=== PATIENT | female | born 1960 | race Caucasian/White ===

== ENCOUNTER → 2016-07-13 | Outpatient (CLI) | payer OTHER ==
--- NOTE | 2016-07-14 09:13 | ECHOF ---
Referral Reason:R06.00 Dyspnea MEASUREMENTS -------- HEIGHT: 152.4 cm WEIGHT: 80.7 kg BP: RVIDd: 2.6 cm (< 3.3) IVSd: 0.9 cm (0.6 - 1.1) LVIDd: 4.2 cm (3.9 - 5.3) LVPWd: 1.1 cm (0.6 - 1.1) IVSs: 1.3 cm LVIDs: 2.9 cm LVPWs: 1.1 cm LA Diam: 3.2 cm (2.7 - 3.8) LAESV Index (A-L): 20.57 ml/m Ao Diam: 2.6 cm (2.0 - 3.7) AV Cusp: 1.8 cm (1.5 - 2.6) LA Diam: 3.6 cm (2.7 - 3.8) MV EXCURSION: 18.221 mm (> 18.000) MV EF SLOPE: 106 mm/s (70 - 150) EPSS: 0.4 cm MV E Daljit: 0.55 m/s MV DecT: 271 ms MV A Daljit: 0.69 m/s MV E/A Ratio: 0.79 RAP: 5.00 mmHg RVSP: 34.50 mmHg FINDINGS -------- Sinus rhythm. This was a technically good study. LV size, wall thickness and systolic function are normal, with an EF greater than 55%. The right ventricle is normal in size. Normal LA size by volume 22+/-6 ml/m2. The right atrial size is normal. There is mild aortic valve sclerosis. There is no evidence of aortic regurgitation. Mild mitral annular calcification present. Mild mitral regurgitation is present. Mild tricuspid regurgitation present. There is no evidence of pulmonary hypertension. The right ventricular systolic pressure, as measured by Doppler, is 34.50mmHg. There is no pulmonic regurgitation present. The aortic root size is normal. There is no pericardial effusion. CONCLUSIONS -------- 1. LV size, wall thickness and systolic function are normal, with an EF greater than 55%. 2. Normal LA size by volume 22+/-6 ml/m2. 3. There is mild aortic valve sclerosis. 4. Mild mitral annular calcification present. 5. Mild mitral regurgitation is present. 6. Mild tricuspid regurgitation present. 7. There is no evidence of pulmonary hypertension. 8. The right ventricular systolic pressure, as measured by Doppler, is 34.50mmHg. 9. There is no pericardial effusion. MARKETING REPRESENTATIVE: Naomi Colón RDCS
== END | disposition home or self-care (01) ==
LOC: RADECHMAIN 13:05
PROVIDERS: ATTEND Family Medicine
DX: I08.3 Combined rheumatic disorders of mitral, aortic and tricuspid valves (principal)
CPT/HCPCS: 93306

== ENCOUNTER → 2017-02-06 | Outpatient (CLI) | payer OTHER ==
--- NOTE | 2017-02-06 17:04 | US ---
EXAMINATION TYPE: US venous doppler duplex UE LT DATE OF EXAM: 02/06/2017 COMPARISON: NONE CLINICAL HISTORY: D68.59 OTHER PRIMARYTHROMBOPHILIA. Redness and edema left forearm, recent IV left f orearm SIDE PERFORMED: left Left Arm: No evidence of DVT. Superficial thrombus noted within left Cephalic vein at antecubital fos sa extending into left lower arm IMPRESSION: No evidence of deep venous thrombosis. There is limited superficial thrombus in the cephalic vein
== END | disposition home or self-care (01) ==
LOC: RADUSWWP 15:57
PROVIDERS: ATTEND Family Medicine
DX: I82.612 Acute embolism and thrombosis of superficial veins of left upper extremity (principal); D68.59 Other primary thrombophilia

== ENCOUNTER → 2018-04-04 | Outpatient (CLI) | payer OTHER ==
--- NOTE | 2018-04-04 08:08 | US ---
EXAMINATION TYPE: US abdomen complete DATE OF EXAM: 04/04/2018 COMPARISON: NONE CLINICAL HISTORY: R14.0 Abdominal Bloating. EXAM MEASUREMENTS: Liver Length: 16.0 cm Gallbladder Wall: 0.2 cm CBD: 0.2 cm Spleen: 8.9 cm Right Kidney: 10.9 x 4.7 x 5.0 cm Left Kidney: 11.2 x 4.4 x 4.4 cm Pancreas: Tail obscured by overlying bowel gas Liver: Heterogeneous Gallbladder: wnl Evidence for sonographic Fregoso's sign: No CBD: wnl Spleen: wnl Right Kidney: No hydronephrosis or masses seen Left Kidney: No hydronephrosis or masses seen Upper IVC: wnl Abd Aorta: Obscured by bowel gas, visualized portions wnl The liver is heterogeneous. The intrahepatic portion of the IVC and proximal abdominal aorta are wit hin normal limits. There is no evidence of cholelithiasis. Common bile duct is unremarkable. The v isualized portions of the pancreas are homogenous. The spleen is unremarkable. Kidneys are symmetri c and free of hydronephrosis. No renal lesions are seen. IMPRESSION: 1. Fatty hepatic infiltration.
== END ==
LOC: RADUSWWP 06:51
PROVIDERS: ATTEND Family Medicine
DX: K76.0 Fatty (change of) liver, not elsewhere classified (principal)
CPT/HCPCS: 76700

== ENCOUNTER → 2019-08-12 | Outpatient (CLI) | payer OTHER ==
[2019-08-12 09:25] LABS: HGB 14.4 gm/dL (11.4-16.0); Hypochromasia Slight; MCH 26.9 pg (25.0-35.0); MCHC 30.7 g/dL (31.0-37.0); MCV 87.7 fL (80.0-100.0); Mean Platelet Volume 9.3; Platelet Count 221 k/uL (150-450); RBC 5.36 m/uL (3.80-5.40); RDW 14.8 % (11.5-15.5); WBC 5.5 k/uL (3.8-10.6)
[2019-08-12 16:14] LABS: African American GFR (CKD) 92.9 (60.0-200.0); Albumin 4.2 g/dL (3.80-4.90); Albumin/Globulin Ratio 2.1 (1.60-3.17); Anion Gap 9.8 mmol/L (4.00-12.00); BUN/Creat Ratio 17.5 Ratio (12.00-20.00); Calcium 9.4 mg/dL (8.7-10.3); Carbon Dioxide 24.2 mmol/L (21.6-31.8); Non-African American GFR(CKD) 80.1 (60.0-200.0); Potassium 4.3 mmol/L (3.5-5.5); Total Bilirubin 0.5 mg/dL (0.2-1.2); Total Protein 6.2 g/dL (6.2-8.2)
== END | disposition home or self-care (01) ==
LOC: LABWHC1 08:20
PROVIDERS: ATTEND Family Medicine
DX: E53.8 Deficiency of other specified B group vitamins (principal); R53.83 Other fatigue; R73.03 Prediabetes
CPT/HCPCS: 36415; 80053; 82607; 83036; 84443; 85027

== ENCOUNTER → 2019-09-01 | Outpatient (CLI) | payer OTHER ==
--- NOTE | 2019-09-01 16:24 | CT ---
EXAMINATION TYPE: CT brain wo con DATE OF EXAM: 09/01/2019 COMPARISON: None INDICATION: Headaches with Cold sensation on the right side of the body DLP: 1012.7 mGycm, Automated exposure control for dose reduction was used. CONTRAST: None CT of the brain is performed utilizing 3 mm thick sections through the posterior fossa and 3 mm thick sections through the remaining calvarium. Study is performed within 24 hours of arrival to the hosp [facility]. No abnormal hyperdensity is present to suggest an acute intracranial hemorrhage. No mass lesion is evident. No acute infarcts are evident. Ventricles and sulci are appropriate for the patient age. Large retention cysts are within the bilateral maxillary sinuses. Remaining paranasal sinuses and mas toid clear. IMPRESSIONS: 1. No acute intracranial process.
== END | disposition home or self-care (01) ==
LOC: RADCTMAIN 15:54
PROVIDERS: ATTEND Family Medicine
DX: G43.109 Migraine with aura, not intractable, without status migrainosus (principal); R20.0 Anesthesia of skin
CPT/HCPCS: 70450

== ENCOUNTER → 2020-05-04 | Outpatient (CLI) | payer OTHER ==
[2020-05-04 11:03] LABS: HCT 45.8 % (37.2-46.3); HGB 14.7 g/dL (12.0-15.0); MCH 27.2 pg (27.0-32.0); MCHC 32.1 g/dL (32.0-37.0); MCV 84.7 fL (80.0-97.0); Mean Platelet Volume 12.2 fL (9.5-12.2); Platelet Count 230 X 10*3/uL (140-440); RBC 5.41 X 10*6/uL (4.10-5.20); RDW 15.3 % (11.5-14.5); WBC 4.54 X 10*3/uL (4.50-10.00)
[2020-05-04 12:27] LABS: African American GFR (CKD) 92.9 (60.0-200.0); Albumin 4.5 g/dL (3.80-4.90); Albumin/Globulin Ratio 2.5 (1.60-3.17); Anion Gap 11.5 mmol/L (4.00-12.00); BUN/Creat Ratio 17.5 Ratio (12.00-20.00); Calcium 9.5 mg/dL (8.7-10.3); Carbon Dioxide 23.5 mmol/L (21.6-31.8); Chol/HDL Ratio 3.09; Globulin 1.8 g/dL (1.6-3.3); LDL Cholesterol,Calculated 92.6 mg/dL (0.0-131.0); Non-African American GFR(CKD) 80.1 (60.0-200.0); Potassium 4.3 mmol/L (3.5-5.5); Total Bilirubin 0.6 mg/dL (0.3-1.2); Total Protein 6.3 g/dL (6.2-8.2); VLDL Calculation 20.4 mg/dL (5.00-40.00)
[2020-05-04 15:21] LABS: Hemoglobin A1C 6.1 % (4.0-6.0)
== END | disposition home or self-care (01) ==
LOC: LABWHC1 07:37
PROVIDERS: ATTEND Family Medicine
DX: E11.9 Type 2 diabetes mellitus without complications (principal)
CPT/HCPCS: 36415; 80053; 80061; 83036; 85027

== ENCOUNTER → 2020-06-21 | Outpatient (CLI) | payer OTHER ==
--- NOTE | 2020-06-21 15:37 | US ---
EXAMINATION TYPE: US venous doppler duplex LE LT DATE OF EXAM: 06/21/2020 3:15 PM COMPARISON: US left lower extremity 05/10/11 CLINICAL HISTORY: R22.42 left lower limb swelling. x 3 weeks SIDE PERFORMED: Left TECHNIQUE: The lower extremity deep venous system is examined utilizing real time linear array sonog naveen with graded compression, doppler sonography and color-flow sonography. VESSELS IMAGED: Common Femoral Vein Deep Femoral Vein Greater Saphenous Vein * Femoral Vein Popliteal Vein Small Saphenous Vein * Proximal Calf Veins (* superficial vessels) Left Leg: Positive for DVT, Mid Pop Vein Clot in Greater Saphenous Vein. Grayscale, color doppler, spectral doppler imaging performed of the deep veins of the left lower extr emity. Current study shows absent color flow with hyperexpanded thrombus in the greater saphenous ve in. There is thrombus filling popliteal vein midsegment level extending distally with subsequent abse nt flow, lumen slightly expanded. IMPRESSION: Acute DVT in the greater saphenous vein up to the groin confluence. Acute DVT in the pop liteal vein level extending distally on current study.
== END | disposition home or self-care (01) ==
LOC: RADUSWWP 14:37
PROVIDERS: ATTEND Family Medicine
DX: I82.432 Acute embolism and thrombosis of left popliteal vein (principal); I82.812 Embolism and thrombosis of superficial veins of left lower extremity

== ENCOUNTER → 2020-07-01 | Outpatient (CLI) | payer OTHER ==
[2020-07-01 11:27] LABS: HCT 46.6 % (37.2-46.3); HGB 14.3 g/dL (12.0-15.0); MCH 26.6 pg (27.0-32.0); MCHC 30.7 g/dL (32.0-37.0); MCV 86.6 fL (80.0-97.0); Platelet Count 378 X 10*3/uL (140-440); RBC 5.38 X 10*6/uL (4.10-5.20); RDW 14.8 % (11.5-14.5); WBC 5.72 X 10*3/uL (4.50-10.00)
[2020-07-01 11:48] LABS: African American GFR (CKD) 80.5 (60.0-200.0); Albumin 4.5 g/dL (3.80-4.90); Albumin/Globulin Ratio 2.05 (1.60-3.17); Anion Gap 6.8 mmol/L (4.00-12.00); BUN/Creat Ratio 14.44 Ratio (12.00-20.00); Calcium 9.5 mg/dL (8.7-10.3); Carbon Dioxide 26.2 mmol/L (21.6-31.8); Chol/HDL Ratio 3.7; Globulin 2.2 g/dL (1.6-3.3); LDL Cholesterol,Calculated 100.8 mg/dL (0.0-131.0); Non-African American GFR(CKD) 69.5 (60.0-200.0); Potassium 4.2 mmol/L (3.5-5.5); Total Bilirubin 0.5 mg/dL (0.3-1.2); Total Protein 6.7 g/dL (6.2-8.2); VLDL Calculation 23.2 mg/dL (5.00-40.00)
[2020-07-01 16:28] LABS: Hemoglobin A1C 6.1 % (4.0-6.0)
== END | disposition home or self-care (01) ==
LOC: LABWHC1 06-30 07:42
PROVIDERS: ATTEND Family Medicine
DX: I82.402 Acute embolism and thrombosis of unspecified deep veins of left lower extremity (principal); D68.59 Other primary thrombophilia; E11.9 Type 2 diabetes mellitus without complications; K21.9 Gastro-esophageal reflux disease without esophagitis
CPT/HCPCS: 36415; 80053; 80061; 83036; 84443; 85027

== ENCOUNTER 2021-10-19 07:38 | Day surgery (SDC) | payer OTHER ==
[2021-10-18 09:26] VITALS: BMI 35.5
[2021-10-19] MEDS ORDERED: LACTATED RINGERS 1,000 ML IV SCH (07:53)
[2021-10-19] MEDS ORDERED: LIDOCAINE 1% (10MG/ML) FOR IV START INTRADERMA PRN (07:53)
[2021-10-19 08:05] VITALS: TEMP 97.4
[2021-10-19] MEDS ORDERED: PROPOFOL 10 MG/ML 20 ML VIAL IV ONE (08:38)
--- NOTE | 2021-10-19 08:40 | P.GSHP ---
History of Present Illness H&P Date: 10/19/21 Chief Complaint: GI bleed, history of hemorrhoids This a 61-year-old female sedation rectal bleeding. Patient's history of hemorrhoids. She presents today for colonoscopy Past Medical History Past Medical History: Diabetes Mellitus, Deep Vein Thrombosis (DVT), GERD/Reflux, Osteoarthritis (OA), Sleep Apnea/CPAP/BIPAP Additional Past Medical History / Comment(s): DVT-HX-, BLOOD DISORDER (NOT SURE OF NAME). History of Any Multi-Drug Resistant Organisms: None Reported Past Surgical History: Section, Orthopedic Surgery, Tonsillectomy Additional Past Surgical History / Comment(s): DISPLACED HIPS CHILD-HAD SX TO CORRECT. COLONOSCOPY. CYST REMOVED FROM LT WIRST Past Anesthesia/Blood Transfusion Reactions: No Reported Reaction Smoking Status: Never smoker - Past Family History Father Family Medical History: Blood Disorder, Cancer Sister(s) Family Medical History: Blood Disorder Mother Family Medical History: Cancer Medications and Allergies Home Medications Medication Instructions Recorded Confirmed Type Acetaminophen Tab [Tylenol Tab] 1,000 mg PO Q6HR PRN 01/24/17 10/19/21 History Aspirin EC [Ecotrin Low Dose] 81 mg PO DAILY 01/24/17 10/19/21 History Cholecalciferol [Vitamin D3] 5,000 unit PO DAILY 01/24/17 10/19/21 History Cyanocobalamin [Vitamin B-12] 500 mcg PO DAILY 01/24/17 10/19/21 History Omeprazole 40 mg PO DAILY 01/24/17 10/19/21 History Famotidine [Pepcid] 20 mg PO DAILY 10/18/21 10/19/21 History Rivaroxaban [Xarelto] 20 mg PO DAILY 10/18/21 10/19/21 History polyethylene glycoL 3350 [Miralax] 17 gm PO DAILY 10/18/21 10/19/21 History Allergies Allergy/AdvReac Type Severity Reaction Status Date / Time No Known Allergies Allergy Verified 10/19/21 07:53 Surgical - Exam Vital Signs Temp Pulse Resp BP Pulse Ox 97.4 F L 70 16 145/65 94 L 10/19/21 08:02 10/19/21 08:02 10/19/21 08:02 10/19/21 08:02 10/19/21 08:02 - General well developed, well nourished, no distress - Eyes PERRL - ENT normal pinna - Neck no masses - Respiratory normal expansion - Cardiovascular Rhythm: regular - Abdomen Abdomen: soft, non tender Assessment and Plan Assessment: GI bleed, history of hemorrhoids. We'll perform colonoscopy
--- NOTE | 2021-10-19 08:57 | P.OP ---
Date of Procedure: 10/19/21 Preoperative Diagnosis: GI bleed Hemorrhoids Postoperative Diagnosis: External hemorrhoids Internal hemorrhoids Diverticulosis Procedure(s) Performed: Colonoscopy Anesthesia: MAC Surgeon: Angel Null Pathology: none sent Condition: stable Disposition: PACU Description of Procedure: The patient's placed on the endoscopy table in the lateral position. She received IV sedation. Digital rectal exam was performed which revealed internal and external hemorrhoids. The flexible colonoscope was then placed patient anus passed throughout the entire colon. The ileocecal valve was visualized. Cecum, ascending and transverse colon appeared normal. There was a few scattered diverticuli seen in the transverse and descending colon. There was a few diverticula seen in the sigmoid colon. Scope summer back the rectum and this appeared normal. Scope withdrawn for patient.
[2021-10-19 09:02] VITALS: RESP 14
[2021-10-19 09:21] VITALS: BP 123/86; PULSE 65
== END 2021-10-19 09:36 | disposition home or self-care (01) ==
LOC: ORWHC2ENDO 07:38
PROVIDERS: ATTEND Surgery
DX: K57.30 Diverticulosis of large intestine without perforation or abscess without bleeding (principal); K64.4 Residual hemorrhoidal skin tags; K64.8 Other hemorrhoids; G47.33 Obstructive sleep apnea (adult) (pediatric); E11.9 Type 2 diabetes mellitus without complications; K21.9 Gastro-esophageal reflux disease without esophagitis; M19.90 Unspecified osteoarthritis, unspecified site; R01.1 Cardiac murmur, unspecified; Z86.718 Personal history of other venous thrombosis and embolism; Z79.82 Long term (current) use of aspirin; Z79.899 Other long term (current) drug therapy; Z79.01 Long term (current) use of anticoagulants; Z80.9 Family history of malignant neoplasm, unspecified; Z84.89 Family history of other specified conditions
CPT/HCPCS: 45378; J2704

== ENCOUNTER → 2021-11-03 | Outpatient (CLI) | payer OTHER ==
--- NOTE | 2021-11-06 10:04 | MM ---
Reason for Exam: Screening (asymptomatic). Last mammogram was performed 4 year(s) and 0 month(s) ago. Patient History: Maternal aunt had breast cancer. Risk Values: Radha 5 year model risk: 1.0%. NCI Lifetime model risk: 4.6%. Prior Study Comparison: 09/21/2016 Bilateral MG screening mammo w CAD - 2, [facility]. 11/08/2017 Bilateral MG screening mammo w CAD - 2, [facility]. Tissue Density: There are scattered fibroglandular densities. Findings: Analyzed By CAD. No suspicious groups of microcalcifications, spiculated or lobular masses, architectural distortion or other secondary signs of malignancy are mammographically apparent. Overall Assessment: Benign, BI-RAD 2 Management: Screening Mammogram of both breasts in 1 year. A negative mammogram report should not preclude additional follow up of suspicious palpable abnormalities. Patient should continue monthly self breast exam. A clinical breast exam by your physician is recommended on an annual basis and results should be correlated with mammographic findings. Electronically signed and approved by: Anurag Campbell D.O. Radiologis
== END | disposition home or self-care (01) ==
LOC: RADMAMWWP 09:13
PROVIDERS: ATTEND Family Medicine
DX: Z12.31 Encounter for screening mammogram for malignant neoplasm of breast (principal)
CPT/HCPCS: 77063; 77067

== ENCOUNTER → 2023-02-19 | Outpatient (CLI) | payer OTHER ==
--- NOTE | 2023-02-19 12:50 | MM ---
Reason for Exam: Screening (asymptomatic). Last mammogram was performed 1 year(s) and 3 month(s) ago. Patient History: Maternal aunt had breast cancer. Risk Values: Radha 5 year model risk: 1.0%. NCI Lifetime model risk: 4.4%. Prior Study Comparison: 09/21/2016 Bilateral MG screening mammo w CAD - 2, [facility]. 11/08/2017 Bilateral MG screening mammo w CAD - 2, [facility]. 11/03/2021 Bilateral MG 3D screening mammo w/cad, [facility]. Tissue Density: There are scattered fibroglandular densities. Findings: Analyzed By CAD. There is no suspicious group of microcalcifications or new suspicious mass. Overall Assessment: Negative, BI-RAD 1 Management: Screening Mammogram of both breasts in [address] [facility] will attempt to contact patient to return for supplemental views and ultrasound if indicated. Patient should continue monthly self-breast exams. A clinical breast exam by your physician is recommended on an annual basis. This exam should not preclude additional follow-up of suspicious palpable abnormalities. Note on Radha scores and lifetime risk: 1. A Radha score greater than 3% is considered moderate risk. If this is the case, consider specialist referral to assess eligibility for a risk reducing agent. 2. If overall lifetime risk for the development of breast cancer is 20% or higher, the patient may qualify for future screening with alternating mammogram and breast MRI. Electronically signed and approved by: Avila Riddle DO
== END | disposition home or self-care (01) ==
LOC: RADMAMWWP 07:50
PROVIDERS: ATTEND Family Medicine
DX: Z12.31 Encounter for screening mammogram for malignant neoplasm of breast (principal); Z80.3 Family history of malignant neoplasm of breast
CPT/HCPCS: 77063; 77067